=== PATIENT | female | born 1965 | race Caucasian/White ===

== ENCOUNTER → 2016-08-01 | Outpatient (CLI) | payer OTHER ==
[~2016-08-01] MED LIST: ALLERGY INJECTION SC; CALCTAB28 PO; MULTTAB4 PO; NORC5TAB PO; Q NASAL; VITA-130 PO; XYZA5TAB PO; [UNRECOGNIZED DRUG - OTHER] PO
[2016-08-01 13:03] LABS: MEAN CORPUSCULAR HEMOGLOBIN 30.9 pg (27.0-33.0); MEAN CORPUSCULAR HGB CONC 33.4 g/dl (32.0-36.5); MEAN CORPUSCULAR VOLUME 92.5 fl (80.0-96.0); WHITE BLOOD COUNT 8.4 K/mm3 (4.0-10.0)
[2016-08-01 13:49] LABS: ALBUMIN 3.4 GM/DL (3.2-5.2); ALKALINE PHOSPHATASE 63 U/L (45-117); ALT/SGPT 26 U/L (12-78); ANION GAP 8 MEQ/L (8-16); AST/SGOT 17 U/L (15-37); BILIRUBIN,TOTAL 0.4 MG/DL (0.2-1.0); BLOOD UREA NITROGEN 10 MG/DL (7-18); CALCIUM LEVEL 8.9 MG/DL (8.5-10.1); CARBON DIOXIDE LEVEL 26 MEQ/L (21-32); CHLORIDE LEVEL 108 MEQ/L (98-107); CHOLESTEROL LEVEL 201 MG/DL (<200); GLOMERULAR FILTRATION RATE > 60.0 (>51); GLUCOSE, FASTING 102 MG/DL (70-105); POTASSIUM SERUM 4.9 MEQ/L (3.5-5.1); SODIUM LEVEL 142 MEQ/L (136-145); TOTAL PROTEIN 6.8 GM/DL (6.4-8.2); TRIGLYCERIDES LEVEL 143 MG/DL (<150)
== END ==
LOC: M SMT 09:38
PROVIDERS: ATTEND Nurse Practitioner Adult Health
DX: Z00.00 Encounter for general adult medical examination without abnormal findings (principal); E55.9 Vitamin D deficiency, unspecified

== ENCOUNTER → 2016-08-02 | Outpatient (CLI) | payer OTHER ==
--- NOTE | 2016-08-02 16:04 | REPMRS ---
Patient History The patient states she had a clinical breast exam in 07/2016. Patient had first child at age 33. No known family history of cancer. Taking hormonal contraceptives for 29 years. Digital Woman Screen Mammo: August 02, 2016 - Exam #: [id number] Bilateral CC and MLO view(s) were taken. Technologist: Sandra Rosas, Technologist Prior study comparison: June 27, 2015, digital woman screen mammo performed at [facility]. June 25, 2014, digital woman screen mammo performed at [facility]. FINDINGS: There are scattered fibroglandular densities. There has been no change in the appearance of the mammogram from the prior studies. There is a mild amount of residual fibroglandular tissue which is fairly symmetric. There is no interval development of dominant mass, architectural distortion, or clustered microcalcification suggestive of malignancy. Scattered lymph nodes are seen in the axillae. There are scattered, small, benign calcifications of doubtful clinical significance. No significant changes when compared with prior studies. ASSESSMENT: BI-RADS/ACR category 2 mammogram. Benign finding(s). Recommendation Routine screening mammogram in 1 year (for women over age 40). This mammogram was interpreted with the aid of an FDA-approved computer-aided dectection system. A. Negative x-ray reports should not delay biopsy if a dominant or clinically suspicious mass is present. B. Four to eight percent of cancers are not identified by mammography. C. Adenosis and dense breast may obscure an underlying neoplasm. Electronically Signed By: Alfredo Stubbs MD 08/02/16 1996
== END ==
LOC: M WHC 14:36
PROVIDERS: ATTEND Nurse Practitioner Family
DX: Z12.31 Encounter for screening mammogram for malignant neoplasm of breast (principal)

== ENCOUNTER → 2016-08-02 | Outpatient (REF) | payer OTHER | LOC: M SFHCWAGY 15:02 | PROVIDERS: ATTEND Nurse Practitioner Family | DX: Z12.4 Encounter for screening for malignant neoplasm of cervix (principal) ==

== ENCOUNTER → 2017-10-03 | Outpatient (REF) | payer OTHER ==
[2017-10-05 14:12] LABS: HPV HYBRID CAPTURE II Negative (Negative)
== END ==
LOC: M SFHCWAGY 15:33
DX: Z12.4 Encounter for screening for malignant neoplasm of cervix (principal)
CPT/HCPCS: G0123

== ENCOUNTER → 2017-10-03 | Outpatient (CLI) | payer OTHER | LOC: M WHC 14:54 | DX: Z12.31 Encounter for screening mammogram for malignant neoplasm of breast (principal); Z92.29 Personal history of other drug therapy ==

== ENCOUNTER → 2017-12-05 | Outpatient (REF) | payer OTHER ==
[2017-12-05 12:37] LABS: ALBUMIN 3.6 GM/DL (3.2-5.2); ALKALINE PHOSPHATASE 106 U/L (45-117); ALT/SGPT 51 U/L (12-78); ANION GAP 8 MEQ/L (8-16); AST/SGOT 23 U/L (7-37); BILIRUBIN,TOTAL 0.4 MG/DL (0.2-1.0); BLOOD UREA NITROGEN 12 MG/DL (7-18); C REACTIVE PROTEIN QUANTITATIV 1.82 MG/DL (0.00-0.30); CALCIUM LEVEL 8.9 MG/DL (8.5-10.1); CARBON DIOXIDE LEVEL 30 MEQ/L (21-32); CHLORIDE LEVEL 105 MEQ/L (98-107); CREATININE FOR GFR 0.72 MG/DL (0.55-1.30); GLOMERULAR FILTRATION RATE > 60.0 (>51); GLUCOSE, FASTING 115 MG/DL (70-100); POTASSIUM SERUM 4.3 MEQ/L (3.5-5.1); RHEUMATOID FACTOR QUANT < 10.0 IU/ML (<15.0); SODIUM LEVEL 143 MEQ/L (136-145); TOTAL PROTEIN 7.6 GM/DL (6.4-8.2)
[2017-12-05 12:43] LABS: TOTAL 25(OH) VITAMIN D 35.2 NG/ML (30.0-100.0)
[2017-12-07 00:08] LABS: CYCLIC CITRULLINATED PEPTIDE 18 units (0-19)
== END ==
LOC: M SFHCPLAZ 09:39
DX: M25.40 Effusion, unspecified joint (principal); E55.9 Vitamin D deficiency, unspecified

== ENCOUNTER → 2018-06-19 | Outpatient (CLI) | payer OTHER ==
[~2018-06-19] MED LIST changes: +ALLERGY SHOTS IM; +D32000TA PO; +LEVOTAB10 PO; +LEVOTAB18 PO; +MULT1TAB10 PO; +VIAC8.5C PO
--- NOTE | 2018-06-20 22:56 | ECHO ---
DATE OF PROCEDURE: 06/19/2018 REFERRING PHYSICIAN: Dr. Nani Oneil INDICATION: Abnormal ECG. HEIGHT: 65 inches. WEIGHT: 210 pounds. 2D MEASUREMENTS: LVOT: 2.2 cm Ventricular septum: 1.1 cm Posterior wall: 1.12 cm Left ventricle diastole: 5.3 cm Left atrium: 3.5 cm Left atrial volume index : 21 DOPPLER MEASUREMENTS: Trace aortic regurgitation. Aortic valve velocity: 133 cm/s LVOT velocity: 118 cm/s LVOT VTI: 24.2 Mitral E velocity: 75.5 cm/s Mitral A velocity: 67.6 cm/s Mitral deceleration time: 218 ms Trace tricuspid regurgitation. Pulmonary artery systolic pressure: 25 mmHg MITRAL ANNULAR TISSUE DOPPLER: E prime septal: 7.8 cm/s E prime lateral: 9.94 cm/s DESCRIPTION: Rhythm was sinus. Image quality was fair. No pericardial effusion. This was a 2D, M-mode, color flow Doppler and pulse wave Doppler examination and included mitral annular tissue Doppler. CONCLUSIONS: 1. Normal left ventricle internal dimensions and wall thickness. Normal regional left ventricular (LV) wall motion and wall thickening. Normal LV systolic function. Left ventricular ejection fraction (LVEF) 70% by visual estimate. Normal LV diastolic function for age. 2. Very mild aortic valve sclerosis. Trace aortic regurgitation. 3. Otherwise normal appearing echocardiogram Doppler findings.
== END ==
LOC: M CARPUL 09:25
PROVIDERS: ATTEND Family Medicine
DX: R94.31 Abnormal electrocardiogram [ECG] [EKG] (principal)

== ENCOUNTER 2018-06-20 09:56 | Day surgery (SDC) | payer OTHER ==
[~2018-06-20] VITALS: Ht 167.6 cm; Wt 98.0 kg
[~2018-06-20 09:56] MED LIST changes: +BACITRACIN PWD 50,000 UNITS VIAL As Ordered ONE; +BUPIVACAINE HCL 0.5% 30 ML VIAL As Ordered ONE; +LIDOCAINE 1% MDV 20ML VIAL SQ PRN; +LIDOCAINE 2% INJ 100 MG/5 ML SDV (FOR ANES.) As Ordered ONE; +LIDOCAINE 2% MDV 20 ML VIAL As Ordered ONE; +LR 1,000 ML IV ONE; +MIDAZOLAM INJ 2 MG/2 ML VIAL (J2250) As Ordered ONE; +NEOSPORIN GU IRRIG 20 ML VIAL As Ordered ONE; +ONDANSETRON 4MG/2ML VIAL (J2405) As Ordered ONE; +PROPOFOL 200 MG/20 ML VIAL As Ordered ONE; +dexameTHASONE 4 MG/ML 1ML VIAL (J1100) As Ordered ONE; +fentaNYL 100 MCG/2 ML INJECTION (J3010) As Ordered ONE
[2018-06-20] MEDS ORDERED: ROCURONIUM BROMIDE 50 MG/5 ML VIAL As Ordered ONE (11:46)
[2018-06-20] MEDS ORDERED: dexameTHASONE 4 MG/ML 1ML VIAL (J1100) As Ordered ONE (11:54)
[2018-06-20] MEDS ORDERED: SUCCINYLCHOLINE 100 MG/5 ML SYRINGE (J0330) As Ordered ONE (13:44)
[2018-06-20] MEDS ORDERED: fentaNYL 100 MCG/2 ML INJECTION (J3010) As Ordered ONE (13:49)
[2018-06-20] MEDS ORDERED: diphenhydrAMINE INJ 50MG/ML VIAL (J1200) As Ordered ONE (13:58)
[2018-06-20] MEDS ORDERED: ONDANSETRON 4MG/2ML VIAL (J2405) IV PRN (15:00)
[2018-06-20] MEDS ORDERED: LR 1,000 ML IV SCH (15:00)
[2018-06-20] MEDS ORDERED: PERCOCET 5MG/325MG TAB PO PRN (15:00)
--- NOTE | 2018-06-20 16:08 | RO ---
DATE OF PROCEDURE: 06/20/2018 PREPROCEDURE DIAGNOSIS: Lipoma right ankle. POSTPROCEDURE DIAGNOSIS: Lipoma right ankle. PROCEDURE: Excision of lipoma right ankle. SURGEON: Dr. Jani Narvaez DPM PROPERTY APPRAISER: None. ANESTHESIA: General with postoperative block. ESTIMATED BLOOD LOSS: 1 mL. HEMOSTASIS: Thigh tourniquet at 300 mmHg, 27 minutes, right thigh. ESTIMATED BLOOD LOSS: Less than 1 mL. DESCRIPTION OF PROCEDURE: On 04/20/2019, this 52-year-old white female was taken from her hospital room to the operating room and placed on the operating table in supine position. Following the induction of IV sedation and local and regional anesthesia, the right lower extremity was prepped and draped in the usual aseptic manner. Sterile draping was completed. Thigh tourniquet was rapidly inflated at 300 mmHg and the following procedure was performed: EXCISION OF LIPOMA RIGHT ANKLE: Attention was directed to the patient's right ankle, and a 5 cm incision was placed on the lateral margin of the tibialis anterior tendon. Dissection was carried down, taking care to retract the saphenous vein. The dissection was carried in a lateral direction to the anterior tibial artery venous complex. However, we did not go under the deep fascia at that location since the lipoma was identified and dissected down to the deep fascia and did not penetrate the other side of the fascial plane. The tumor was removed and all small bleeders were electrocoagulated as encountered. The wound was flushed with copious amounts of dilute bacitracin, neomycin and polymyxin B solution. Attention was directed towards closure where the subcutaneous tissues were coapted and maintained with #4-0 Monocryl in a simple interrupted-type fashion. The skin incision was coapted and maintained utilizing #4-0 Prolene in a simple interrupted and horizontal mattress-type fashion. Attention was directed towards bandaging where a sterile compressive bandage was applied consisting of Adaptic, 4 x 4's, Kerlix and Coban. Thigh tourniquet was rapidly deflated, instantaneous capillary filling time was noted in digits 1-5 of the patient's right lower extremity. The patient having apparently tolerated the surgical procedure well was taken to the recovery room. During the procedure, however, the patient did have a rash without welting. She was given 25 mg of Benadryl and 100 mg of hydrocortisone. The patient remained stable throughout the procedure.
[2018-06-20 17:00] VITALS: BP 142/69
== END 2018-06-20 17:00 | disposition home or self-care (01) ==
LOC: M SDC 09:56
PROVIDERS: ATTEND Podiatrist
DX: D17.23 Benign lipomatous neoplasm of skin and subcutaneous tissue of right leg (principal); B07.0 Plantar wart; R06.83 Snoring; G47.33 Obstructive sleep apnea (adult) (pediatric); R94.31 Abnormal electrocardiogram [ECG] [EKG]; Z88.2 Allergy status to sulfonamides; Z78.0 Asymptomatic menopausal state

== ENCOUNTER → 2018-07-25 | Outpatient (REF) | payer OTHER ==
[~2018-07-25] MED LIST changes: -BACITRACIN PWD 50,000 UNITS VIAL As Ordered ONE; -BUPIVACAINE HCL 0.5% 30 ML VIAL As Ordered ONE; -LIDOCAINE 1% MDV 20ML VIAL SQ PRN; -LIDOCAINE 2% INJ 100 MG/5 ML SDV (FOR ANES.) As Ordered ONE; -LIDOCAINE 2% MDV 20 ML VIAL As Ordered ONE; -LR 1,000 ML IV ONE; -MIDAZOLAM INJ 2 MG/2 ML VIAL (J2250) As Ordered ONE; -NEOSPORIN GU IRRIG 20 ML VIAL As Ordered ONE; -ONDANSETRON 4MG/2ML VIAL (J2405) As Ordered ONE; -PROPOFOL 200 MG/20 ML VIAL As Ordered ONE; -dexameTHASONE 4 MG/ML 1ML VIAL (J1100) As Ordered ONE; -fentaNYL 100 MCG/2 ML INJECTION (J3010) As Ordered ONE
[2018-07-25 18:59] LABS: INFLUENZA A AMPLIFICATION POSITIVE (NEGATIVE); INFLUENZA B AMPLIFICATION NEGATIVE (NEGATIVE)
== END ==
LOC: M LAB REF 17:58
PROVIDERS: ATTEND Physician Assistant
DX: J11.1 Influenza due to unidentified influenza virus with other respiratory manifestations (principal)

== ENCOUNTER → 2018-10-06 | Outpatient (CLI) | payer OTHER ==
--- NOTE | 2018-10-06 16:48 | REPMRS ---
Patient History The patient states she had a clinical breast exam in 09/2018. Family history of colorectal cancer in maternal grandmother, colorectal cancer in maternal grandfather. Took hormonal contraceptives for 30 years. 3D TOMOSYNTHESIS WAS PERFORMED. Digital Woman Screen Mammo: October 06, 2018 - Exam #: [id number] Bilateral CC and MLO view(s) were taken. Technologist: Sandra Rosas, Technologist Prior study comparison: October 03, 2017, digital woman screen mammo performed at [facility]. August 02, 2016, digital woman screen mammo performed at [facility]. FINDINGS: There are scattered fibroglandular densities. There has been no change in the appearance of the mammogram from the prior studies. There is a mild amount of residual fibroglandular tissue which is fairly symmetric. There is no interval development of dominant mass, architectural distortion, or clustered microcalcification suggestive of malignancy. Assessment: BI-RADS/ACR category 1 mammogram. Negative Mammogram. Recommendation Routine screening mammogram in 1 year (for women over age 40). This mammogram was interpreted with the aid of an FDA-approved computer-aided dectection system. Electronically Signed By: Carmelo Sanchez MD 10/06/18 [id number]
== END ==
LOC: M WHC 15:11
PROVIDERS: ATTEND Nurse Practitioner Family
DX: Z12.31 Encounter for screening mammogram for malignant neoplasm of breast (principal); Z92.0 Personal history of contraception

== ENCOUNTER → 2018-12-25 | Outpatient (CLI) | payer OTHER ==
[~2018-12-25] MED LIST changes: -VIAC8.5C PO; +VIACTIV 500-5001 CHW PO
--- NOTE | 2018-12-25 18:24 | REP ---
Thyroid sonography: History: Thyroid fullness. Findings: Thyroid isthmus is 0.3 cm in thickness. Right lobe dimensions are 4.4 x 1.6 x 0.9 cm. The left lobe measures 3.5 x 1.5 x 1.1 cm. Tiny cysts are noted in the thyroid. Just to the left of the isthmus, there is a 2.1 mm cyst. There are three identifiable cysts in the right lobe, the largest of which measures 3.3 mm. Impression: Normal thyroid sonography. Electronically Signed by Michael Yo MD 12/25/2018 07:27 P
== END ==
LOC: M RAD 14:04
PROVIDERS: ATTEND Nurse Practitioner Adult Health
DX: E07.89 Other specified disorders of thyroid (principal)

== ENCOUNTER → 2019-12-22 | Outpatient (CLI) | payer OTHER ==
[2019-12-22 17:27] LABS: ALBUMIN 3.8 GM/DL (3.2-5.2); ALT/SGPT 50 U/L (12-78); BILIRUBIN,TOTAL 0.3 MG/DL (0.2-1.0); BLOOD UREA NITROGEN 10 MG/DL (7-18); CALCIUM LEVEL 9.1 MG/DL (8.5-10.1); CARBON DIOXIDE LEVEL 29 MEQ/L (21-32); CHLORIDE LEVEL 106 MEQ/L (98-107); CHOLESTEROL LEVEL 252 MG/DL (<200); CREATININE FOR GFR 0.78 MG/DL (0.55-1.30); GLOMERULAR FILTRATION RATE > 60.0 (>51); GLUCOSE, FASTING 107 MG/DL (70-100); HDL CHOLESTEROL 48 MG/DL (>40); LDL CHOLESTEROL 171 MG/DL (<100); NON-HDL-C 204 MG/DL; SODIUM LEVEL 140 MEQ/L (136-145); TOTAL PROTEIN 7.7 GM/DL (6.4-8.2); TRIGLYCERIDES LEVEL 167 MG/DL (<150)
[2019-12-22 17:28] LABS: TOTAL 25(OH) VITAMIN D 37.3 NG/ML (30.0-100.0)
[2019-12-22 18:13] LABS: HEMOGLOBIN A1c 6.2 %
== END ==
LOC: M PLALAB 14:05
PROVIDERS: ATTEND Nurse Practitioner Adult Health
DX: Z83.3 Family history of diabetes mellitus (principal); E55.9 Vitamin D deficiency, unspecified; Z13.220 Encounter for screening for lipoid disorders; Z83.49 Family history of other endocrine, nutritional and metabolic diseases

== ENCOUNTER → 2019-12-22 | Outpatient (CLI) | payer OTHER ==
--- NOTE | 2019-12-22 14:45 | REPMRS ---
Patient History The patient states she had a clinical breast exam in December 2019. Family history of colorectal cancer in maternal grandmother, colorectal cancer in maternal grandfather. Took hormonal contraceptives for 30 years. 3D TOMOSYNTHESIS WAS PERFORMED. The Tommy Benito lifetime risk for breast cancer is 11.3%. [employer]OLK[employer]IA [employer] A. Digital Woman Screen Mammo: December 22, 2019 - Exam #: [id number] Bilateral CC and MLO view(s) were taken. Technologist: Sheryl Rosa, Technologist Prior study comparison: October 06, 2018, bilateral digital woman screen mammo performed at [facility]. October 03, 2017, digital woman screen mammo performed at [facility]. FINDINGS: There are scattered fibroglandular densities. There has been no change in the appearance of the mammogram from the prior studies. There is a mild amount of residual fibroglandular tissue which is fairly symmetric. There is no interval development of dominant mass, architectural distortion, or clustered microcalcification suggestive of malignancy. Assessment: BI-RADS/ACR category 1 mammogram. Negative Mammogram. Recommendation Routine screening mammogram in 1 year (for women over age 40). This mammogram was interpreted with the aid of an FDA-approved computer-aided dectection system. Electronically Signed By: Carmelo Sanchez MD 12/22/19 [id number]
== END ==
LOC: M WHC 13:09
PROVIDERS: ATTEND Nurse Practitioner Family
DX: Z12.31 Encounter for screening mammogram for malignant neoplasm of breast (principal)

== ENCOUNTER → 2019-12-30 | Outpatient (CLI) | payer OTHER ==
--- NOTE | 2019-12-30 14:47 | REP ---
Clinical: Thyroid cyst. Comparison: 12/25/2018. Technique: Real time shah scale and color evaluation using linear high frequency and curved array transducers. Findings: The left thyroid lobe measures 3.9 x 1.6 x 1.2 cm and appears normal in contour and parenchymal echo texture. No associated cyst or nodule identified. Previously noted 2 mm cyst is not identified on current exam. Isthmus measures 3.3 mm in width. The right thyroid lobe measures 3.9 x 2.1 x 1.0 cm and includes two small mid pole cysts measuring less than 4 mm each and remain stable. Impression: Small nonspecific and likely benign stable cysts in the right lobe again noted. Electronically Signed by Chapito Trevino MD 12/30/2019 02:38 P
== END ==
LOC: M PLAIMG 13:42
PROVIDERS: ATTEND Nurse Practitioner Adult Health
DX: E07.89 Other specified disorders of thyroid (principal); E04.1 Nontoxic single thyroid nodule

== ENCOUNTER → 2020-12-26 | Outpatient (REF) | payer OTHER | LOC: M SFHCPLAZ 12:54 | PROVIDERS: ATTEND Nurse Practitioner Adult Health | DX: R30.0 Dysuria (principal) ==

== ENCOUNTER → 2020-12-26 | Outpatient (CLI) | payer OTHER ==
[2020-12-26 14:06] LABS: ALBUMIN 3.8 GM/DL (3.2-5.2); ALT/SGPT 39 U/L (12-78); BILIRUBIN,TOTAL 0.3 MG/DL (0.2-1.0); BLOOD UREA NITROGEN 13 MG/DL (7-18); CALCIUM LEVEL 9.5 MG/DL (8.5-10.1); CARBON DIOXIDE LEVEL 29 MEQ/L (21-32); CHLORIDE LEVEL 108 MEQ/L (98-107); CHOLESTEROL LEVEL 216 MG/DL (<200); GLOMERULAR FILTRATION RATE > 60.0 (>51); GLUCOSE, FASTING 111 MG/DL (70-100); HDL CHOLESTEROL 54 MG/DL (>40); LDL CHOLESTEROL 137 MG/DL (<100); NON-HDL-C 162 MG/DL; POTASSIUM SERUM 4.8 MEQ/L (3.5-5.1); SODIUM LEVEL 142 MEQ/L (136-145); TOTAL 25(OH) VITAMIN D 45.6 NG/ML (30.0-100.0); TOTAL PROTEIN 7.2 GM/DL (6.4-8.2); TRIGLYCERIDES LEVEL 127 MG/DL (<150)
[2020-12-26 14:34] LABS: HEMOGLOBIN A1c 6.2 %
== END ==
LOC: M PLALAB 11:11
PROVIDERS: ATTEND Nurse Practitioner Adult Health
DX: Z00.00 Encounter for general adult medical examination without abnormal findings (principal); E04.1 Nontoxic single thyroid nodule; Z83.3 Family history of diabetes mellitus; Z13.220 Encounter for screening for lipoid disorders

== ENCOUNTER → 2021-01-05 | Outpatient (CLI) | payer OTHER ==
--- NOTE | 2021-01-05 16:30 | REPMRS ---
Patient History The patient states she had a clinical breast exam in December 2020. Patient is postmenopausal and had first child at age 33. Family history of colorectal cancer in maternal grandmother, colorectal cancer in maternal grandfather. Took hormonal contraceptives for 30 years. Patient states no breast complaints today. Patient has signed MRS History Sheet. Digital Woman Screen Mammo: January 05, 2021 - Exam #: [id number] Bilateral CC and MLO view(s) were taken. Technologist: Gabrielle Reilly, Technologist Prior study comparison: December 22, 2019, bilateral digital woman screen mammo performed at [facility]. October 06, 2018, bilateral digital woman screen mammo performed at [facility]. FINDINGS: There are scattered fibroglandular densities. Screening. Digital screening (2D) mammography was performed bilaterally in the CC and MLO projections. Additionally, breast tomosynthesis (3D mammography) was performed bilaterally in the CC and MLO projections. Todays exam was compared to the prior exam/exams. By history, the patient has no complaints of a palpable breast abnormality or other significant breast complaints. The breasts are unchanged in size and shape. There are no caitlyn-soft tissue densities or spiculated masses. There is no internal architectural distortion. Once again, stable benign appearing calcifications are seen.There are no suspicious caitlyn-calcific clusters. Skin thickening or nipple retraction is not present. IMPRESSION: BI-RADS Category 2- Benign Findings. There is no evidence of malignant alteration of the breasts. Followup examination recommended in one year. The Volpara volumetric breast density category is B, there are scattered areas of fibroglandular densities. This mammogram was read with the assistance of [facility],an FDA approved computer aided detection system for mammography. The lifetime Tyrer-Cuzick score is 11.6 % Negative x-ray reports should not delay surgical consultation if a dominant or clinically suspicious mass is present. Not all breast cancers can be identified by mammography. Therefore, we recommend that you continue to perform regular breast self-examination and physical examination and then promptly contact your physician of any concerns or changes. Adenosis and dense breasts may obscure an underlying neoplasm. Assessment: BI-RADS/ACR category 2 mammogram. Benign Findings. Recommendation Routine screening mammogram of both breasts in 1 year. Electronically Signed By: Dayne Martinez, 01/05/21 [id number]
== END ==
LOC: M WHC 13:53
PROVIDERS: ATTEND Advanced Practice Midwife
DX: Z12.31 Encounter for screening mammogram for malignant neoplasm of breast (principal); Z78.0 Asymptomatic menopausal state; R92.8 Other abnormal and inconclusive findings on diagnostic imaging of breast

== ENCOUNTER → 2021-01-05 | Outpatient (REF) | payer OTHER | LOC: M SFHCWAGY 18:17 | PROVIDERS: ATTEND Advanced Practice Midwife | DX: Z12.4 Encounter for screening for malignant neoplasm of cervix (principal) | CPT/HCPCS: 87624; G0123 ==

== ENCOUNTER → 2021-11-23 | Outpatient (CLI) | payer OTHER ==
[~2021-11-23] MED LIST changes: +[UNRECOGNIZED DRUG - OTHER] NARES
== END ==
LOC: M LABSMTC 09:38
PROVIDERS: ATTEND Anesthesiology
DX: Z01.812 Encounter for preprocedural laboratory examination (principal); Z20.822 Contact with and (suspected) exposure to COVID-19

== ENCOUNTER 2021-11-28 09:37 | Day surgery (SDC) | payer OTHER ==
[~2021-11-28] VITALS: Ht 167.6 cm; Wt 88.5 kg
[~2021-11-28 09:37] MED LIST changes: +LIDOCAINE 2% 100MG/5ML SDV (FOR ANES.) As Ordered ONE; +NS 1,000 ML IV ONE; +propofoL 200 MG/20 ML VIAL As Ordered ONE
[2021-11-28 11:35] VITALS: BP 127/73
== END 2021-11-28 11:44 | disposition home or self-care (01) ==
LOC: M OPP 09:37
PROVIDERS: ATTEND Internal Medicine Gastroenterology
DX: Z12.11 Encounter for screening for malignant neoplasm of colon (principal); Z86.010 Personal history of colon polyps; Z80.0 Family history of malignant neoplasm of digestive organs; K63.5 Polyp of colon; G47.30 Sleep apnea, unspecified; J30.9 Allergic rhinitis, unspecified; Z88.2 Allergy status to sulfonamides; Z79.899 Other long term (current) drug therapy; Z80.1 Family history of malignant neoplasm of trachea, bronchus and lung; Z83.6 Family history of other diseases of the respiratory system

== ENCOUNTER → 2022-03-27 | Outpatient (CLI) | payer OTHER ==
[~2022-03-27] MED LIST changes: -LIDOCAINE 2% 100MG/5ML SDV (FOR ANES.) As Ordered ONE; -NS 1,000 ML IV ONE; -propofoL 200 MG/20 ML VIAL As Ordered ONE
[2022-03-27 11:41] LABS: HEMOGLOBIN A1c 6.9 %
[2022-03-27 12:25] LABS: ALBUMIN 3.5 GM/DL (3.2-5.2); ALT/SGPT 39 U/L (12-78); BILIRUBIN,TOTAL 0.5 MG/DL (0.2-1.0); BLOOD UREA NITROGEN 13 MG/DL (7-18); CALCIUM LEVEL 9.1 MG/DL (8.5-10.1); CARBON DIOXIDE LEVEL 29 MEQ/L (21-32); CHLORIDE LEVEL 106 MEQ/L (98-107); CHOLESTEROL LEVEL 229 MG/DL (<200); CHOLESTEROL RISK RATIO 4.403 (<5); CREATININE FOR GFR 0.77 MG/DL (0.55-1.30); GLOMERULAR FILTRATION RATE > 60.0 (>51); GLUCOSE, FASTING 143 MG/DL (70-100); HDL CHOLESTEROL 52 MG/DL (>40); LDL CHOLESTEROL 138 MG/DL (<100); NON-HDL-C 177 MG/DL; POTASSIUM SERUM 4.3 MEQ/L (3.5-5.1); SODIUM LEVEL 139 MEQ/L (136-145); THYROID STIMULATING HORMONE 0.865 uIU/ML (0.358-3.740); TOTAL PROTEIN 7.2 GM/DL (6.4-8.2); TRIGLYCERIDES LEVEL 193 MG/DL (<150)
[2022-03-27 12:59] LABS: TOTAL 25(OH) VITAMIN D 37.4 NG/ML (30.0-100.0)
== END ==
LOC: M PLALAB 09:30
PROVIDERS: ATTEND Nurse Practitioner Adult Health
DX: Z00.00 Encounter for general adult medical examination without abnormal findings (principal); Z83.3 Family history of diabetes mellitus; E55.9 Vitamin D deficiency, unspecified; Z13.220 Encounter for screening for lipoid disorders; E04.1 Nontoxic single thyroid nodule

== ENCOUNTER → 2022-04-09 | Outpatient (CLI) | payer OTHER | LOC: M WHC 11:06 | PROVIDERS: ATTEND Nurse Practitioner Family | DX: Z12.31 Encounter for screening mammogram for malignant neoplasm of breast (principal) ==

== ENCOUNTER → 2022-04-09 | Outpatient (REF) | payer OTHER | LOC: M PLALAB 13:39 | PROVIDERS: ATTEND Nurse Practitioner Family | DX: Z12.4 Encounter for screening for malignant neoplasm of cervix (principal) | CPT/HCPCS: 87624; G0123 ==

== ENCOUNTER → 2022-04-25 | Outpatient (REF) | payer OTHER | LOC: M LAB REF 10:08 | PROVIDERS: ATTEND Physician Assistant | DX: R05.9 Cough, unspecified (principal); J02.9 Acute pharyngitis, unspecified ==

== ENCOUNTER → 2023-01-09 | Outpatient (REF) | payer OTHER | LOC: M LAB REF 21:04 | PROVIDERS: ATTEND Physician Assistant Medical | DX: R07.0 Pain in throat (principal) ==

== ENCOUNTER → 2023-04-05 | Outpatient (CLI) | payer OTHER ==
[2023-04-05 11:10] LABS: HEMATOCRIT 41.7 % (36.0-47.0); HEMOGLOBIN 13.7 g/dl (12.0-15.5); MEAN CORPUSCULAR HEMOGLOBIN 30.7 pg (27.0-33.0); MEAN CORPUSCULAR HGB CONC 32.9 g/dl (32.0-36.5); MEAN CORPUSCULAR VOLUME 93.5 fl (80.0-96.0); PLATELET COUNT, AUTOMATED 312 10^3/uL (150-450); RED BLOOD COUNT 4.46 10^6/uL (4.00-5.40); WHITE BLOOD COUNT 7.1 10^3/uL (4.0-10.0)
[2023-04-05 11:17] LABS: HEMOGLOBIN A1c 6.7 % (4.0-6.0)
[2023-04-05 11:30] LABS: ALBUMIN 3.8 G/DL (3.2-5.2); ALKALINE PHOSPHATASE 90 U/L (46-116); ALT/SGPT 46 U/L (7.0-40); AST/SGOT 25 U/L (<34); BILIRUBIN,TOTAL 0.3 MG/DL (0.3-1.2); BLOOD UREA NITROGEN 13 MG/DL (9-23); CALCIUM LEVEL 8.9 MG/DL (8.5-10.1); CARBON DIOXIDE LEVEL 29 MMOL/L (20-31); CHLORIDE LEVEL 106 MMOL/L (98-107); CHOLESTEROL LEVEL 235 MG/DL (<200); CHOLESTEROL RISK RATIO 4.93 (<5); CREATININE FOR GFR 0.64 MG/DL (0.55-1.30); GLOMERULAR FILTRATION RATE > 60.0 (>51); GLUCOSE, FASTING 141 MG/DL (60-100); HDL CHOLESTEROL 47.6 MG/DL (>40); LDL CHOLESTEROL 159.2 MG/DL (<100); NON-HDL-C 187.4 MG/DL; POTASSIUM SERUM 4.8 MMOL/L (3.5-5.1); SODIUM LEVEL 142 MMOL/L (136-145); TOTAL PROTEIN 6.9 G/DL (5.7-8.2); TRIGLYCERIDES LEVEL 141 MG/DL (<150)
[2023-04-05 11:32] LABS: THYROID STIMULATING HORMONE 2.809 uIU/ML (0.55-4.78); TOTAL 25(OH) VITAMIN D 30.1 NG/ML (20.0-100.0)
== END ==
LOC: M PLALAB 08:45
PROVIDERS: ATTEND Nurse Practitioner Adult Health
DX: Z00.00 Encounter for general adult medical examination without abnormal findings (principal); Z13.220 Encounter for screening for lipoid disorders; Z83.3 Family history of diabetes mellitus; E04.1 Nontoxic single thyroid nodule; E55.9 Vitamin D deficiency, unspecified

== ENCOUNTER → 2023-10-07 | Outpatient (CLI) | payer OTHER | LOC: M PLAIMG 12:24 | PROVIDERS: ATTEND Nurse Practitioner Adult Health | DX: R07.81 Pleurodynia (principal); R09.81 Nasal congestion ==

== ENCOUNTER → 2024-04-08 | Outpatient (CLI) | payer OTHER ==
[2024-04-08 13:10] LABS: ALBUMIN 3.7 G/DL (3.2-5.2); ALKALINE PHOSPHATASE 99 U/L (35-104); ALT/SGPT 46 U/L (7.0-40); AST/SGOT 21 U/L (<34); BILIRUBIN,TOTAL 0.5 MG/DL (0.3-1.2); BLOOD UREA NITROGEN 13 MG/DL (9-23); CARBON DIOXIDE LEVEL 30 MMOL/L (20-31); CHLORIDE LEVEL 106 MMOL/L (98-107); CHOLESTEROL LEVEL 229 MG/DL (<200); CREATININE FOR GFR 0.64 MG/DL (0.55-1.30); GLOMERULAR FILTRATION RATE > 60.0 (>51); GLUCOSE, FASTING 274 MG/DL (60-100); HDL CHOLESTEROL 38.8 MG/DL (>40); NON-HDL-C 190.2 MG/DL; POTASSIUM SERUM 5.2 MMOL/L (3.5-5.1); SODIUM LEVEL 141 MMOL/L (136-145); TOTAL PROTEIN 7.1 G/DL (5.7-8.2); TRIGLYCERIDES LEVEL 206 MG/DL (<150)
[2024-04-08 13:15] LABS: FREE T4 1.04 NG/DL (0.89-1.76); THYROID STIMULATING HORMONE 1.279 uIU/ML (0.55-4.78)
[2024-04-08 13:16] LABS: TOTAL 25(OH) VITAMIN D 38.8 NG/ML (20.0-100.0)
[2024-04-08 14:12] LABS: HEMOGLOBIN A1c 11.9 % (4.0-6.0)
== END ==
LOC: M PLALAB 09:47
PROVIDERS: ATTEND Nurse Practitioner Adult Health
DX: E78.2 Mixed hyperlipidemia (principal); E55.9 Vitamin D deficiency, unspecified; E74.39 Other disorders of intestinal carbohydrate absorption; E04.9 Nontoxic goiter, unspecified

== ENCOUNTER → 2024-04-27 | Outpatient (CLI) | payer OTHER ==
[2024-04-27 15:30] LABS: ALBUMIN 3.9 G/DL (3.2-5.2); ALKALINE PHOSPHATASE 96 U/L (35-104); ALT/SGPT 52 U/L (7.0-40); AST/SGOT 24 U/L (<34); BILIRUBIN,TOTAL 0.5 MG/DL (0.3-1.2); BLOOD UREA NITROGEN 14 MG/DL (9-23); CALCIUM LEVEL 10.4 MG/DL (8.5-10.1); CARBON DIOXIDE LEVEL 28 MMOL/L (20-31); CHLORIDE LEVEL 102 MMOL/L (98-107); CREATININE FOR GFR 0.65 MG/DL (0.55-1.30); GLOMERULAR FILTRATION RATE > 60.0 (>51); GLUCOSE, FASTING 292 MG/DL (60-100); POTASSIUM SERUM 5.3 MMOL/L (3.5-5.1); SODIUM LEVEL 139 MMOL/L (136-145); TOTAL PROTEIN 7.3 G/DL (5.7-8.2)
[2024-04-27 16:20] LABS: HEMOGLOBIN A1c 12.1 % (4.0-6.0)
== END ==
LOC: M PLALAB 12:18
PROVIDERS: ATTEND Nurse Practitioner Adult Health
DX: E78.2 Mixed hyperlipidemia (principal); E74.39 Other disorders of intestinal carbohydrate absorption

== ENCOUNTER → 2024-06-22 | Outpatient (CLI) | payer OTHER ==
[2024-06-22 10:53] LABS: HEMOGLOBIN A1c 9.3 % (4.0-6.0)
[2024-06-22 11:05] LABS: ALBUMIN 3.9 G/DL (3.2-5.2); ALKALINE PHOSPHATASE 79 U/L (35-104); ALT/SGPT 31 U/L (7.0-40); AST/SGOT 17 U/L (<34); BILIRUBIN,TOTAL 0.5 MG/DL (0.3-1.2); BLOOD UREA NITROGEN 17 MG/DL (9-23); CALCIUM LEVEL 9.5 MG/DL (8.5-10.1); CARBON DIOXIDE LEVEL 28 MMOL/L (20-31); CHLORIDE LEVEL 106 MMOL/L (98-107); CREATININE FOR GFR 0.71 MG/DL (0.55-1.30); GLOMERULAR FILTRATION RATE > 60.0 (>51); GLUCOSE, FASTING 151 MG/DL (60-100); POTASSIUM SERUM 5.2 MMOL/L (3.5-5.1); SODIUM LEVEL 143 MMOL/L (136-145); TOTAL PROTEIN 7.1 G/DL (5.7-8.2)
== END ==
LOC: M PLALAB 08:56
PROVIDERS: ATTEND Nurse Practitioner Adult Health
DX: E78.2 Mixed hyperlipidemia (principal); E74.39 Other disorders of intestinal carbohydrate absorption

== ENCOUNTER → 2024-07-21 | Outpatient (CLI) | payer OTHER ==
[2024-07-21 15:06] LABS: ALBUMIN 3.7 G/DL (3.2-5.2); ALKALINE PHOSPHATASE 73 U/L (35-104); ALT/SGPT 32 U/L (7.0-40); AST/SGOT 17 U/L (<34); BILIRUBIN,TOTAL 0.4 MG/DL (0.3-1.2); BLOOD UREA NITROGEN 14 MG/DL (9-23); CALCIUM LEVEL 9.3 MG/DL (8.5-10.1); CARBON DIOXIDE LEVEL 28 MMOL/L (20-31); CHLORIDE LEVEL 109 MMOL/L (98-107); CHOLESTEROL LEVEL 210 MG/DL (<200); CHOLESTEROL RISK RATIO 4.23 (<5); CREATININE FOR GFR 0.65 MG/DL (0.55-1.30); GLOMERULAR FILTRATION RATE > 60.0 (>51); GLUCOSE, FASTING 135 MG/DL (60-100); HDL CHOLESTEROL 49.6 MG/DL (>40); LDL CHOLESTEROL 138.6 MG/DL (<100); NON-HDL-C 160.4 MG/DL; POTASSIUM SERUM 5.6 MMOL/L (3.5-5.1); SODIUM LEVEL 143 MMOL/L (136-145); TRIGLYCERIDES LEVEL 109 MG/DL (<150)
== END ==
LOC: M PLALAB 09:24
PROVIDERS: ATTEND Nurse Practitioner Adult Health
DX: E78.2 Mixed hyperlipidemia (principal); E11.65 Type 2 diabetes mellitus with hyperglycemia

== ENCOUNTER → 2024-09-29 | Outpatient (CLI) | payer OTHER | LOC: M PLAIMG 15:29 | PROVIDERS: ATTEND Nurse Practitioner Adult Health | DX: R07.1 Chest pain on breathing (principal) ==

== ENCOUNTER → 2024-10-12 | Outpatient (CLI) | payer OTHER ==
[2024-10-12 11:51] LABS: FREE T4 1.13 NG/DL (0.89-1.76)
[2024-10-12 11:52] LABS: ALBUMIN 3.9 G/DL (3.2-5.2); ALKALINE PHOSPHATASE 73 U/L (35-104); ALT/SGPT 35 U/L (7.0-40); AST/SGOT 23 U/L (<34); BILIRUBIN,TOTAL 0.5 MG/DL (0.3-1.2); BLOOD UREA NITROGEN 15 MG/DL (9-23); CALCIUM LEVEL 9.7 MG/DL (8.5-10.1); CARBON DIOXIDE LEVEL 30 MMOL/L (20-31); CHLORIDE LEVEL 105 MMOL/L (98-107); CHOLESTEROL LEVEL 236 MG/DL (<200); CHOLESTEROL RISK RATIO 4.63 (<5); CREATININE FOR GFR 0.65 MG/DL (0.55-1.30); GLOMERULAR FILTRATION RATE > 90.0 (>51); GLUCOSE, FASTING 123 MG/DL (60-100); HDL CHOLESTEROL 50.9 MG/DL (>40); LDL CHOLESTEROL 157.5 MG/DL (<100); NON-HDL-C 185.1 MG/DL; POTASSIUM SERUM 5.5 MMOL/L (3.5-5.1); SODIUM LEVEL 144 MMOL/L (136-145); THYROID STIMULATING HORMONE 1.117 uIU/ML (0.55-4.78); TOTAL PROTEIN 7.1 G/DL (5.7-8.2); TRIGLYCERIDES LEVEL 138 MG/DL (<150)
== END ==
LOC: M PLALAB 09:17
PROVIDERS: ATTEND Nurse Practitioner Adult Health
DX: E78.2 Mixed hyperlipidemia (principal); E11.65 Type 2 diabetes mellitus with hyperglycemia; E04.1 Nontoxic single thyroid nodule

== ENCOUNTER → 2024-10-21 | Outpatient (CLI) | payer OTHER | LOC: M RAD 11:01 | PROVIDERS: ATTEND Nurse Practitioner Adult Health | DX: E04.1 Nontoxic single thyroid nodule (principal); Z83.49 Family history of other endocrine, nutritional and metabolic diseases ==

== ENCOUNTER → 2025-04-05 | Outpatient (CLI) | payer OTHER ==
[2025-04-05 16:01] LABS: ALT/SGPT 40 U/L (7.0-40); AST/SGOT 25 U/L (<34); CALCIUM LEVEL 9.5 MG/DL (8.3-10.6); CARBON DIOXIDE LEVEL 26 MMOL/L (20-31); CHLORIDE LEVEL 106 MMOL/L (98-107); CHOLESTEROL LEVEL 219 MG/DL (<200); CHOLESTEROL RISK RATIO 4.45 (<5); CREATININE FOR GFR 0.64 MG/DL (0.55-1.30); GLOMERULAR FILTRATION RATE > 90.0 (>45); LDL CHOLESTEROL 129.8 MG/DL (<100); NON-HDL-C 169.8 MG/DL; POTASSIUM SERUM 4.1 MMOL/L (3.5-5.1); SODIUM LEVEL 143 MMOL/L (136-145); TRIGLYCERIDES LEVEL 200 MG/DL (<150)
[2025-04-05 16:03] LABS: FREE T4 1.10 NG/DL (0.89-1.76)
[2025-04-05 16:15] LABS: ESTIMATED AVERAGE GLUCOSE 177.0 MG/DL (60-110)
== END ==
LOC: M PLALAB 13:11
PROVIDERS: ATTEND Nurse Practitioner Adult Health
DX: E11.9 Type 2 diabetes mellitus without complications (principal); E78.2 Mixed hyperlipidemia; Z83.49 Family history of other endocrine, nutritional and metabolic diseases; E55.9 Vitamin D deficiency, unspecified